=== PATIENT | female | born 1975 | race Caucasian/White ===

== ENCOUNTER 2019-09-06 11:02 | Observation (INO) | payer BC ==
--- NOTE | 2019-09-06 11:24 | ER Document Report ---
ED Medical Screen (RME) - General Chief Complaint: Weakness Stated Complaint: WEAKNESS Time Seen by Provider: 09/06/19 11:21 Mode of Arrival: Ambulatory Information source: Patient Notes: 44-year-old female presents to ED for complaint of tired fatigue weakness that went to start medical yesterday they naomi her blood and said that her hemoglobin was very low. She states they did not give her a number but they did tell her to come to the emergency room. She states that in March she had a endoscopy and a colonoscopy and they were not able to find where she is bleeding from. States until now she was not told that she had a low hemoglobin. States she does have pain in her back injury but no other pain just tired and weak. 1/3 1/2 pack/day smoked denies alcohol and drugs. She states she has a history of a gastric sleeve, 2 C-sections, abdominal hernia repair, hypertension and anemia. I have greeted and performed a rapid initial assessment of this patient. A comprehensive ED assessment and evaluation of the patient, analysis of test results and completion of medical decision making process will be conducted by an additional ED providers. TRAVEL OUTSIDE OF THE [place] IN LAST 30 DAYS: No - Related Data Allergies/Adverse Reactions: Penicillins Allergy (Verified 07/30/15 15:27) Past Medical History - Past Medical History Cardiac Medical History: Reports: Hx Hypertension Pulmonary Medical History: Reports: Hx Asthma Past Surgical History: Reports: Hx Abdominal Surgery - lap band, Hx Section - x2, Hx Cholecystectomy, Hx Hysterectomy, Hx Inguinal Hernia - Immunizations Immunizations up to date: Yes Hx Diphtheria, Pertussis, Tetanus Vaccination: Yes Physical Exam - Vital signs Vitals: Temp Pulse Resp BP Pulse Ox 98.7 F 89 18 137/97 H 98 09/06/19 11:08 09/06/19 11:08 09/06/19 11:08 09/06/19 11:08 09/06/19 11:08 Course - Vital Signs Vital signs: Temp Pulse Resp BP Pulse Ox 98.7 F 89 18 137/97 H 98 09/06/19 11:08 09/06/19 11:08 09/06/19 11:08 09/06/19 11:08 09/06/19 11:08
[2019-09-06 11:59] LABS: ABSOLUTE BASOPHILS # (AUTO) 0.1 10^3/uL (0.0-0.2); ABSOLUTE EOSINOPHILS # (AUTO) 0.1 10^3/uL (0.0-0.6); ABSOLUTE MONOCYTES (AUTO) 0.6 10^3/uL (0.1-1.4); ABSOLUTE NEUT (AUTO) 4.8 10^3/uL (1.7-8.2); BASOPHILS % (AUTO) 0.7 % (0-2); EOSINOPHILS % (AUTO) 0.8 % (0-6); HEMATOCRIT 24.1 % (36.0-47.0); LYMPHOCYTES % (AUTO) 26.2 % (13-45); MEAN CORPUSCULAR HEMOGLOBIN 19.1 pg (27.0-33.4); MEAN CORPUSCULAR HGB CONC 30.3 g/dL (32.0-36.0); MONOCYTES % (AUTO) 7.9 % (3-13); PLATELET COUNT 485 10^3/uL (150-450); RED BLOOD COUNT 3.81 10^6/uL (3.72-5.28); RED CELL DISTRIBUTION WIDTH 17.5 % (11.5-14.0); SEGMENTED NEUTROPHILS % (AUTO) 64.4 % (42-78); TOTAL CELLS COUNTED % (AUTO) 100 %; WHITE BLOOD COUNT 7.5 10^3/uL (4.0-10.5)
[2019-09-06 12:14] LABS: HEMOGLOBIN 7.3 g/dL (12.0-15.5); MEAN CORPUSCULAR VOLUME 63 fl (80-97)
[2019-09-06 12:16] LABS: AMORPHOUS SEDIMENT,URINE TRACE /HPF; APPEARANCE,URINE SLIGHTLY-CLOUDY; BILIRUBIN,URINE NEGATIVE (NEGATIVE); COLOR,URINE YELLOW; GLUCOSE, URINE NEGATIVE (NEGATIVE); KETONES,URINE NEGATIVE (NEGATIVE); PROTEIN,URINE NEGATIVE (NEGATIVE); URINE SPECIFIC GRAVITY 1.009; UROBILINOGEN,URINE NEGATIVE mg/dL (<2.0)
[2019-09-06 12:28] LABS: ALBUMIN 4.4 g/dL (3.5-5.0); ALKALINE PHOSPHATASE 111 U/L (38-126); ANION GAP 9 (5-19); ASPARTATE AMINO TRANSFERASE 28 U/L (14-36); BILIRUBIN,DIRECT 0.1 mg/dL (0.0-0.4); BILIRUBIN,TOTAL 0.3 mg/dL (0.2-1.3); BLOOD UREA NITROGEN 13 mg/dL (7-20); CALCIUM 9.7 mg/dL (8.4-10.2); CARBON DIOXIDE 27 mmol/L (22-30); CHLORIDE 103 mmol/L (98-107); GLUCOSE 89 mg/dL (75-110); POTASSIUM 4.3 mmol/L (3.6-5.0); TOTAL PROTEIN 7.4 g/dL (6.3-8.2)
[2019-09-06 12:38] LABS: ANISOCYTOSIS 1+; HYPOCHROMASIA 2+
[2019-09-06 12:40] LABS: PLATELET COMMENT INCREASED
[2019-09-06] MEDS ORDERED: NORMAL SALINE 250 ML IV PRN (13:29)
--- NOTE | 2019-09-06 13:35 | ER Document Report ---
ED General - General Chief Complaint: General Weakness Stated Complaint: WEAKNESS Time Seen by Provider: 09/06/19 11:21 Mode of Arrival: Ambulatory Information source: Patient Notes: Patient is an otherwise healthy 44-year-old female presenting to the emergency department chief complaint of generalized weakness and fatigue. She states she was seen in her primary care provider yesterday and had blood drawn. She states they called her this morning stating that her hemoglobin was very low and she needed to come to the emergency department. She does report having another episode of low hemoglobin sometime in March and states she had a an endoscopy and colonoscopy which were both negative. She denies any nausea, vomiting, diarrhea. Denies any dark stools. Denies any episodes of syncope. She has had a history of a gastric sleeve, 2 C-sections, abdominal hernia repair, hysterectomy, hypertension and is seen at [facility]. TRAVEL OUTSIDE OF THE [place] IN LAST 30 DAYS: No - Related Data Allergies/Adverse Reactions: Penicillins Allergy (Verified 07/30/15 15:27) Past Medical History - General Information source: Patient - Social History Smoking Status: Current Every Day Smoker Chew tobacco use (# tins/day): No Frequency of alcohol use: None Drug Abuse: None Family History: CAD, CVA, DM, Hypertension, Other Patient has suicidal ideation: No Patient has homicidal ideation: No - Past Medical History Cardiac Medical History: Reports: Hx Hypertension Pulmonary Medical History: Reports: Hx Asthma Past Surgical History: Reports: Hx Abdominal Surgery - lap band, Hx Section - x2, Hx Cholecystectomy, Hx Hysterectomy, Hx Inguinal Hernia - Immunizations Immunizations up to date: Yes Hx Diphtheria, Pertussis, Tetanus Vaccination: Yes Review of Systems - Review of Systems Constitutional: Malaise, Weakness EENT: No symptoms reported Cardiovascular: No symptoms reported Respiratory: No symptoms reported Gastrointestinal: No symptoms reported Genitourinary: No symptoms reported Female Genitourinary: No symptoms reported Musculoskeletal: No symptoms reported Skin: No symptoms reported Hematologic/Lymphatic: No symptoms reported Neurological/Psychological: No symptoms reported Physical Exam - Vital signs Vitals: Temp Pulse Resp BP Pulse Ox 98.7 F 89 18 137/97 H 98 09/06/19 11:08 09/06/19 11:08 09/06/19 11:08 09/06/19 11:08 09/06/19 11:08 - Notes Notes: PHYSICAL EXAMINATION: GENERAL: Well-appearing, well-nourished and in no acute distress. HEAD: Atraumatic, normocephalic. EYES: Pupils equal round and reactive to light, extraocular movements intact, conjunctiva are normal. ENT: Nares patent, oropharynx clear without exudates. Moist mucous membranes. NECK: Normal range of motion, supple without lymphadenopathy LUNGS: Breath sounds clear to auscultation bilaterally and equal. No wheezes rales or rhonchi. HEART: Regular rate and rhythm without murmurs ABDOMEN: Soft, nontender, nondistended abdomen. No guarding, no rebound. No masses appreciated. Female : No CVA tenderness. Musculoskeletal: Normal range of motion, no pitting or edema. No cyanosis. NEUROLOGICAL: Cranial nerves grossly intact. Normal speech, normal gait. Normal sensory, motor exams PSYCH: Normal mood, normal affect. SKIN: Pale. Course - Re-evaluation Re-evalutation: Patient appears well, nontoxic, vital signs are within normal limits. Patient has had no episodes of hypotension or tachycardia. Patient's hemoglobin is 7.3. She is symptomatic, complaining of fatigue and generalized weakness. Denies any unilateral weakness, nausea, vomiting, diarrhea, bloody stools or any other symptoms. Will initiate blood transfusions here in the emergency department and plan for admission for anemia work-up. Patient and family member at bedside are in agreements with this plan. Patient was accepted for admission by hospitalist, . - Vital Signs Vital signs: Temp Pulse Resp BP Pulse Ox 98.7 F 89 18 137/97 H 98 09/06/19 11:08 09/06/19 11:08 09/06/19 11:08 09/06/19 11:08 09/06/19 11:08 - Laboratory Result Diagrams: 09/06/19 11:30 09/06/19 11:30 Laboratory results interpreted by me: 09/06/19 09/06/19 09/06/19 11:30 11:30 11:30 Hgb 7.3 L Hct 24.1 L MCV 63 L MCH 19.1 L MCHC 30.3 L RDW 17.5 H Plt Count 485 H Est GFR ( Amer) 59 L Est GFR (MDRD) Non-Af 49 L Urine Blood Leukocyte Esterase Rfl Crossmatch See Detail 09/06/19 11:30 Hgb Hct MCV MCH MCHC RDW Plt Count Est GFR ( Amer) Est GFR (MDRD) Non-Af Urine Blood LARGE H Leukocyte Esterase Rfl TRACE H Crossmatch Discharge - Discharge Clinical Impression: Symptomatic anemia Condition: Stable Disposition: ADMITTED OBSERVATION Admitting Provider: Dr. Hood (Hospitalist) Unit Admitted: Surgical Floor
[2019-09-06 14:00] LABS: ABSOLUTE RETICS # 0.053 10^6/uL (0.028-0.122)
[2019-09-06 14:18] LABS: IRON(TIBC) 14.8 ug/dL (37-170)
[2019-09-06] MEDS ORDERED: MAG HYDROX/AL HYDROX/SIMETH SUSP 30 ML UDCUP PO PRN (14:54)
[2019-09-06] MEDS ORDERED: ACETAMINOPHEN 325 MG TABLET PO PRN (14:54)
[2019-09-06 15:18] LABS: FERRITIN 4.02 ng/mL (6.2-137.0)
--- NOTE | 2019-09-06 15:33 | PDOC H&P ---
History of Present Illness Admission Date/PCP: 09/06/19 13:59 Patient complains of: fatigue, low Hb on outpatient labs History of Present Illness: AMPARO ZAFAR is a 44 year old female with a history of anemia, remote gastric bypass surgery, hypertension [not on any medications], remote hysterectomy, nephrolithiasis, who presents to the hospital by referral of her primary care physician's office. Of note patient has been experiencing increasing fatigue over the past couple of weeks even though she does have some fatigue at baseline. Patient went to see her primary care doctor who did some blood work. Patient was notified today while at work that her hemoglobin resulted to be very low and that she should go to the hospital immediately. Patient states that she had a history of anemia was previously taking iron pills which she stopped because of stomach upset. She states that she was evaluated with an upper endoscopy and a colonoscopy in March this year which showed no evidence of any bleeding source. She had a total hysterectomy over 10 years ago for tumor/cyst. Patient eats a regular diet consumes enough vegetables and animal products. Patient denies any evidence of bleeding besides some gross but mild hematuria which she has been having recently without any abdominal or back pain. Of note patient has had nephrolithiasis accompanied by flank pain last year which was treated with lithotripsy. Patient currently denies any shortness of breath dizziness or lightheadedness. Past Medical History Cardiac Medical History: Reports: Hypertension Pulmonary Medical History: Reports: Asthma Renal/ Medical History: Reports: Nephrolithiasis Hematology: Reports: Anemia Past Surgical History Past Surgical History: Reports: Section - x2, Cholecystectomy, Gastric Bypass Surgery, Hysterectomy, Other - Lithotripsy Social History Information Source: Patient Occupation: Employed Smoking Status: Current Every Day Smoker Cigarettes Packs Per Day: 15 Electronic Cigarette use?: No Frequency of Alcohol Use: Occasional Hx Recreational Drug Use: No Drugs: None Family History Family History: CAD, CVA, DM, Hypertension, Other Parental Family History Reviewed: Yes Children Family History Reviewed: NA Sibling(s) Family History Reviewed.: Yes Medication/Allergy Home Medications: No Home Medications 09/06/19 Allergies/Adverse Reactions: Penicillins Allergy (Verified 07/30/15 15:27) Review of Systems Constitutional: PRESENT: fatigue, weakness. ABSENT: chills, fever(s), weight gain Eyes: ABSENT: visual disturbances Cardiovascular: ABSENT: chest pain, dyspnea on exertion, edema, palpitations Respiratory: ABSENT: dyspnea, hemoptysis Gastrointestinal: ABSENT: diarrhea, hematemesis, vomiting Genitourinary: PRESENT: hematuria Integumentary: PRESENT: diaphoresis - Occasionally whenever sugars get low Neurological: ABSENT: dizziness, paresthesias, syncope Endocrine: ABSENT: cold intolerance, heat intolerance, menstrual abnormalities - Has had hysterectomy over 10 years ago Hematologic/Lymphatic: ABSENT: easy bleeding Physical Exam Vital Signs: Temp Pulse Resp BP Pulse Ox 98.8 F 72 14 142/106 H 100 09/06/19 14:52 09/06/19 14:30 09/06/19 14:52 09/06/19 14:52 09/06/19 14:52 Intake & Output 09/05/19 09/06/19 09/07/19 06:59 06:59 06:59 Intake Total 0 Balance 0 Weight 68.9 kg General appearance: PRESENT: no acute distress, cooperative Head exam: PRESENT: normocephalic Eye exam: PRESENT: conjunctiva pale, EOMI Mouth exam: PRESENT: moist Neck exam: ABSENT: JVD Respiratory exam: PRESENT: clear to auscultation khadra, symmetrical, unlabored. ABSENT: rhonchi, stridor, wheezes Cardiovascular exam: PRESENT: RRR, +S1, +S2. ABSENT: diastolic murmur, systolic murmur GI/Abdominal exam: PRESENT: normal bowel sounds, soft. ABSENT: guarding, rigid, tenderness Rectal exam: ABSENT: heme (+) stool Extremities exam: ABSENT: calf tenderness Musculoskeletal exam: PRESENT: ambulatory Neurological exam: PRESENT: alert, awake, oriented to person, oriented to place, oriented to time, oriented to situation Psychiatric exam: ABSENT: agitated, anxious Skin exam: ABSENT: abrasion Results Laboratory Results: 09/06/19 11:30 09/06/19 11:30 09/06/19 09/06/19 09/06/19 11:30 11:30 11:30 WBC 7.5 RBC 3.81 Hgb 7.3 L Hct 24.1 L MCV 63 L MCH 19.1 L MCHC 30.3 L RDW 17.5 H Plt Count 485 H Seg Neutrophils % 64.4 Retic Count (auto) Sodium 139.3 Potassium 4.3 Chloride 103 Carbon Dioxide 27 Anion Gap 9 BUN 13 Creatinine 1.20 Est GFR ( Amer) 59 L Glucose 89 Calcium 9.7 Total Bilirubin 0.3 AST 28 Alkaline Phosphatase 111 Total Protein 7.4 Albumin 4.4 Lipase 79.0 Urine Color Urine Appearance Urine pH Ur Specific [place] Urine Protein Urine Glucose (UA) Urine Ketones Urine Blood Urine RBC (Auto) Blood Type O POSITIVE Antibody Screen NEGATIVE 09/06/19 09/06/19 11:30 11:30 WBC RBC Hgb Hct MCV MCH MCHC RDW Plt Count Seg Neutrophils % Retic Count (auto) 1.40 Sodium Potassium Chloride Carbon Dioxide Anion Gap BUN Creatinine Est GFR ( Amer) Glucose Calcium Total Bilirubin AST Alkaline Phosphatase Total Protein Albumin Lipase Urine Color YELLOW Urine Appearance SLIGHTLY-CLOUDY Urine pH 5.0 Ur Specific [place] 1.009 Urine Protein NEGATIVE Urine Glucose (UA) NEGATIVE Urine Ketones NEGATIVE Urine Blood LARGE H Urine RBC (Auto) 34 Blood Type Antibody Screen Assessment and Plan - Diagnosis (1) Symptomatic anemia Is this a current diagnosis for this admission?: Yes Plan: -Patient has been typed and screened and is currently being transfused 2 units of blood in the ER. -Patient has microcytic anemia with low reticulocyte count relative to degree of anemia, normal WBC count, and reactive thrombocytosis. -I suspect the patient's anemia secondary to significant iron deficiency likely from malabsorption from gastric bypass. This will also explain the low reticulocyte index. -Bilirubin is normal and there is very low suspicion for hemolysis. We will check an LDL but no need to check further hemolysis labs -I will follow-up with iron studies, B12, folic acid levels. (2) Uncontrolled hypertension Is this a current diagnosis for this admission?: Yes Plan: Patient states that she does not take any blood pressure medications because her blood pressure dropped she was taking lisinopril and hydrochlorothiazide combination Start patient on dose of chlorthalidone and monitor the blood pressure response (3) Painless hematuria Is this a current diagnosis for this admission?: Yes Plan: Patient will need outpatient follow-up with urology. I doubt that this is responsible for this degree of anemia. (4) Fatigue Qualifiers: Encounter type: initial encounter Is this a current diagnosis for this admission?: Yes Plan: Likely secondary to anemia. Check TSH. - Time Time Spent with patient: 35 or more minutes Medications reviewed and adjusted accordingly: Yes Anticipated discharge: Home Within: within 24 hours
[2019-09-06 15:49] LABS: FOLATE 3.79 ng/mL (>2.76)
[2019-09-06] MEDS ORDERED: INFLUENZA QUAD (6MOS+) 2019-20 VAC 0.5 ML SYR IM ONE (19:16)
[2019-09-07 06:04] LABS: HEMATOCRIT 30.7 % (36.0-47.0); MEAN CORPUSCULAR HEMOGLOBIN 22.2 pg (27.0-33.4); MEAN CORPUSCULAR HGB CONC 32.1 g/dL (32.0-36.0); PLATELET COUNT 393 10^3/uL (150-450); RED BLOOD COUNT 4.44 10^6/uL (3.72-5.28); RED CELL DISTRIBUTION WIDTH 24.3 % (11.5-14.0); WHITE BLOOD COUNT 5.5 10^3/uL (4.0-10.5)
[2019-09-07 06:15] LABS: HEMOGLOBIN 9.9 g/dL (12.0-15.5)
[2019-09-07 06:29] LABS: ANION GAP 8 (5-19); BLOOD UREA NITROGEN 10 mg/dL (7-20); CALCIUM 9.6 mg/dL (8.4-10.2); CARBON DIOXIDE 26 mmol/L (22-30); CHLORIDE 108 mmol/L (98-107); GLUCOSE 85 mg/dL (75-110); POTASSIUM 4.6 mmol/L (3.6-5.0)
[2019-09-07 06:33] LABS: MEAN CORPUSCULAR VOLUME 69 fl (80-97)
[2019-09-07] MEDS ORDERED: AMLODIPINE BESYLATE 5 MG TABLET PO SCH (10:00)
--- NOTE | 2019-09-07 13:10 | PDOC DISCHARGE SUMMARY ---
Impression - Admit/DC Date/PCP Admission Date/Primary Care Provider: 09/06/19 13:59 Discharge Date: 09/07/19 - Discharge Diagnosis (1) Symptomatic anemia Is this a current diagnosis for this admission?: Yes (2) Uncontrolled hypertension Is this a current diagnosis for this admission?: Yes (3) Painless hematuria Is this a current diagnosis for this admission?: Yes (4) Fatigue Is this a current diagnosis for this admission?: Yes - Assessment Summary: Mrs. Zafar is a 44-year-old female with a history of chronic anemia and hypertension [currently not taking any antihypertensives], who presents to the hospital referral for primary care physician's office after outpatient blood work revealed that her hemoglobin was low. Of note patient has been recently complaining of exaggerated fatigue. Of note, patient had recent upper and lower endoscopy this year which showed no source of bleeding. Patient also had a total hysterectomy several years ago.On evaluation in the ER, patient's hemoglobin was 7.3. She was admitted for symptomatic anemia. She was started on 2 units of red blood cell transfusion in the ER. Iron studies done before transfusion showed significant iron deficiency anemia with normal vitamin B12, folic acid and TSH levels. LDH and bilirubin were normal making hemolysis unlikely. Reticulocyte count was relatively low given the degree of anemia which is consistent with iron deficiency. Patient's fatigue improved after the blood transfusion. Patient's blood pressure was also noted to be very high in several readings down throughout her stay in the hospital. Will discharge have started patient on iron pills to be taken every other day as well as amlodipine to be taken daily. Patient has also been given strict instructions to follow-up with primary care provider for further management and for referral to see a urologist regarding her recent mild but gross hematuria. - Additional Information Resuscitation Status: Full Code Discharge Diet: As Tolerated Discharge Activity: Activity As Tolerated Prescriptions: Ferrous Sulfate 325 mg PO Q2DAYS #30 tablet. Amlodipine Benzoate [Katerzia] 10 mg PO DAILY 30 Days oral.susp Home Medications: Amlodipine Benzoate [Katerzia] 10 mg PO DAILY 30 Days oral.susp 09/07/19 Ferrous Sulfate 325 mg PO Q2DAYS #30 tablet. 09/07/19 History of Present Illiness History of Present Illness: AMPARO ZAFAR is a 44 year old female with a history of anemia, remote gastric bypass surgery, hypertension [not on any medications], remote hysterectomy, nephrolithiasis, who presents to the hospital by referral of her primary care physician's office. Of note patient has been experiencing increasing fatigue over the past couple of weeks even though she does have some fatigue at baseline. Patient went to see her primary care doctor who did some blood work. Patient was notified today while at work that her hemoglobin resulted to be very low and that she should go to the hospital immediately. Patient states that she had a history of anemia was previously taking iron pills which she stopped because of stomach upset. She states that she was evaluated with an upper endoscopy and a colonoscopy in March this year which showed no evidence of any bleeding source. She had a total hysterectomy over 10 years ago for tumor/cyst. Patient eats a regular diet consumes enough vegetables and animal products. Patient denies any evidence of bleeding besides some gross but mild hematuria which she has been having recently without any abdominal or back pain. Of note patient has had nephrolithiasis accompanied by flank pain last year which was treated with lithotripsy. Patient currently denies any shortness of breath dizziness or lightheadedness. Physical Exam Vital Signs: Temp Pulse Resp BP Pulse Ox 98.1 F 59 L 16 168/92 H 96 09/07/19 10:53 09/07/19 10:53 09/07/19 10:53 09/07/19 10:53 09/07/19 10:53 Intake & Output 09/06/19 09/07/19 09/08/19 06:59 06:59 06:59 Intake Total 1390 Balance 1390 Weight 69.2 kg General appearance: PRESENT: no acute distress, cooperative Eye exam: PRESENT: conjunctiva pale, EOMI Neck exam: ABSENT: JVD, tracheal deviation Respiratory exam: PRESENT: clear to auscultation khadra, symmetrical, unlabored. ABSENT: rhonchi, wheezes Cardiovascular exam: PRESENT: RRR, +S1, +S2. ABSENT: diastolic murmur, systolic murmur, tachycardia GI/Abdominal exam: PRESENT: normal bowel sounds, soft. ABSENT: rebound, rigid, tenderness Musculoskeletal exam: PRESENT: ambulatory Neurological exam: PRESENT: alert, awake, oriented to person, oriented to place, oriented to time, oriented to situation Results Laboratory Results: WBC 5.5 10^3/uL (4.0-10.5) 09/07/19 05:40 RBC 4.44 10^6/uL (3.72-5.28) 09/07/19 05:40 Hgb 9.9 g/dL (12.0-15.5) L D 09/07/19 05:40 Hct 30.7 % (36.0-47.0) L 09/07/19 05:40 MCV 69 fl (80-97) L D 09/07/19 05:40 MCH 22.2 pg (27.0-33.4) L 09/07/19 05:40 MCHC 32.1 g/dL (32.0-36.0) 09/07/19 05:40 RDW 24.3 % (11.5-14.0) H 09/07/19 05:40 Plt Count 393 10^3/uL (150-450) 09/07/19 05:40 Lymph % (Auto) 26.2 % (13-45) 09/06/19 11:30 [place] % (Auto) 7.9 % (3-13) 09/06/19 11:30 Eos % (Auto) 0.8 % (0-6) 09/06/19 11:30 Baso % (Auto) 0.7 % (0-2) 09/06/19 11:30 Reticulocyte # 0.053 10^6/uL (0.028-0.122) 09/06/19 11:30 Absolute Neuts (auto) 4.8 10^3/uL (1.7-8.2) 09/06/19 11:30 Absolute Lymphs (auto) 2.0 10^3/uL (0.5-4.7) 09/06/19 11:30 Absolute Monos (auto) 0.6 10^3/uL (0.1-1.4) 09/06/19 11:30 Absolute Eos (auto) 0.1 10^3/uL (0.0-0.6) 09/06/19 11:30 Absolute Basos (auto) 0.1 10^3/uL (0.0-0.2) 09/06/19 11:30 Seg Neutrophils % 64.4 % (42-78) 09/06/19 11:30 Platelet Comment INCREASED 09/06/19 11:30 Hypochromasia 2+ 09/06/19 11:30 Anisocytosis 1+ 11/08/19 11:30 Microcytosis 3+ 09/06/19 11:30 Retic Count (auto) 1.40 % (0.66-2.85) 09/06/19 11:30 Sodium 142.2 mmol/L (137-145) 09/07/19 05:40 Potassium 4.6 mmol/L (3.6-5.0) 09/07/19 05:40 Chloride 108 mmol/L (98-107) H 09/07/19 05:40 Carbon Dioxide 26 mmol/L (22-30) 09/07/19 05:40 Anion Gap 8 (5-19) 09/07/19 05:40 BUN 10 mg/dL (7-20) 09/07/19 05:40 Creatinine 1.19 mg/dL (0.52-1.25) 09/07/19 05:40 Est GFR ( Amer) 59 (>60) L 09/07/19 05:40 Est GFR (MDRD) Non-Af 49 (>60) L 09/07/19 05:40 Glucose 85 mg/dL (75-110) 09/07/19 05:40 Calcium 9.6 mg/dL (8.4-10.2) 09/07/19 05:40 Iron 14.8 ug/dL (37-170) L 09/06/19 11:30 TIBC 487 ug/dL (250-450) H 09/06/19 11:30 % Saturation 3 % 09/06/19 11:30 Ferritin 4.02 ng/mL (6.2-137.0) L 09/06/19 11:30 Total Bilirubin 0.3 mg/dL (0.2-1.3) 09/06/19 11:30 Direct Bilirubin 0.1 mg/dL (0.0-0.4) 09/06/19 11:30 Neonat Total Bilirubin Not Reportable 09/06/19 11:30 Neonat Direct Bilirubin Not Reportable 09/06/19 11:30 Neonat Indirect Bili Not Reportable 09/06/19 11:30 AST 28 U/L (14-36) 09/06/19 11:30 ALT 14 U/L (<35) 09/06/19 11:30 Alkaline Phosphatase 111 U/L (38-126) 09/06/19 11:30 Lactate Dehydrogenase 145 U/L (120-246) 09/07/19 05:40 Total Protein 7.4 g/dL (6.3-8.2) 09/06/19 11:30 Albumin 4.4 g/dL (3.5-5.0) 09/06/19 11:30 Lipase 79.0 U/L (23-300) 09/06/19 11:30 Vitamin B12 268.0 pg/mL (239-931) 09/06/19 11:30 Folate 3.79 ng/mL (>2.76) 09/06/19 11:30 TSH 3.01 uIU/mL (0.47-4.68) 09/07/19 05:40 Urine Color YELLOW 09/06/19 11:30 Urine Appearance SLIGHTLY-CLOUDY 09/06/19 11:30 Urine pH 5.0 (5.0-9.0) 09/06/19 11:30 Ur Specific [place] 1.009 09/06/19 11:30 Urine Protein NEGATIVE mg/dL (NEGATIVE) 09/06/19 11:30 Urine Glucose (UA) NEGATIVE mg/dL (NEGATIVE) 09/06/19 11:30 Urine Ketones NEGATIVE mg/dL (NEGATIVE) 09/06/19 11:30 Urine Blood LARGE (NEGATIVE) H 09/06/19 11:30 Urine Nitrite (Reflex) NEGATIVE (NEGATIVE) 09/06/19 11:30 Urine Bilirubin NEGATIVE (NEGATIVE) 09/06/19 11:30 Urine Urobilinogen NEGATIVE mg/dL (<2.0) 09/06/19 11:30 Leukocyte Esterase Rfl TRACE (NEGATIVE) H 09/06/19 11:30 Urine RBC (Auto) 34 /HPF 09/06/19 11:30 Urine Bacteria (Auto) 3+ /HPF 09/06/19 11:30 Urine WBC (Reflex) 4 /HPF 09/06/19 11:30 Squamous Epi Cells Auto 1 /HPF 09/06/19 11:30 Amorphous Sediment Auto TRACE /HPF 09/06/19 11:30 Urine Mucus (Auto) RARE /LPF 09/06/19 11:30 Urine Ascorbic Acid NEGATIVE (NEGATIVE) 09/06/19 11:30 POC Stool Occult Blood NEGATIVE (NEGATIVE) 09/06/19 13:13 Blood Type O POSITIVE 09/06/19 11:30 Antibody Screen NEGATIVE 09/06/19 11:30 Crossmatch See Detail 09/06/19 11:30 Stroke Is this a Stroke Patient?: No Acute Heart Failure - Is this a Heart Failure Patient?: No
[2019-09-07 13:54] VITALS: BP 132/94
== END 2019-09-07 14:47 | disposition home or self-care (01) ==
LOC: ER 11:02 → EH 13:59 → 4N 18:19
PROVIDERS: ADMIT Internal Medicine; ATTEND Internal Medicine
PROC: 30233N1 Transfusion of Nonautologous Red Blood Cells into Peripheral Vein, Percutaneous Approach (ICD-10-PCS; principal; 2019-09-06)
PROC: 3E02340 Introduction of Influenza Vaccine into Muscle, Percutaneous Approach (ICD-10-PCS; 2019-09-07)
DX: D50.9 Iron deficiency anemia, unspecified (principal); I10 Essential (primary) hypertension; R31.0 Gross hematuria; R53.83 Other fatigue; R61 Generalized hyperhidrosis; F17.210 Nicotine dependence, cigarettes, uncomplicated; Z90.710 Acquired absence of both cervix and uterus; Z98.84 Bariatric surgery status; Z87.442 Personal history of urinary calculi; Z98.890 Other specified postprocedural states; Z90.49 Acquired absence of other specified parts of digestive tract; Z82.49 Family history of ischemic heart disease and other diseases of the circulatory system; Z83.3 Family history of diabetes mellitus; Z23 Encounter for immunization
CPT/HCPCS: 99284; 86900; 86901; 36415 ×2; 87086; 36430; 86850; 82607; 82728; 82746; 83540; 83550; 83615; 83690; 84443; 85025; 85027; 87088; 85045; 80048; 80053; 81001; 87186; 86920; 90686; G0378 ×3; G0008; P9016; 90471